=== PATIENT | female | born 1955 | race Two or more races ===

== ENCOUNTER 2024-08-27 21:46 | Emergency (ER) | payer OTHER, SELFPAY ==
--- NOTE | 2024-08-27 21:49 | XR_ITS ---
Examination: CT cervical spine without contrast 2-D sagittal reconstructions 2-D coronal reconstructions 3-D reconstructions. Exam date and time:August 27, 2024 1059 hrs. Indications: Ground-level fall today with injury to the neck, neck pain CTDI:vol (mGy) 12.46 DLP: (mGycm) 321 Technique: Multiple 2 mm axial sections of the cervical spine have been obtained. The coronal and sagittal reconstructions have been obtained. 3-D reconstructions have been obtained. Low dose protocols were performed. One or more of the following dose reduction techniques were used; automated exposure control, adjustment of the mA and/or KV according to patient size, use of iterative reconstruction technique. Findings: Axial sections demonstrate intact base of the skull. C1 exhibit satisfactory relationship to the odontoid. No acute cervical vertebral body fracture seen. Alignment posterior spinous processes satisfactory. Impression: No acute cervical fracture. Biapical parenchymal scarring
--- NOTE | 2024-08-27 21:49 | XR_ITS ---
Examination: CT brain head without contrast. 2-D sagittal coronal reconstructions Date and time of exam:August 27, 2024 1037 hrs. Indications: Ground-level fall today with injury to the head, head pain Comparison none: February 23, 2022 CTDI: vol (mGy):46.1 DLP: (mGycm):925 Technique: Multiple CT axial sections of the brain have been obtained, 5 mm slice thickness. Contrast has not been administered. 2-D sagittal, coronal reconstructions have been obtained Low dose protocols were performed. One or more of the following dose reduction techniques were used; automated exposure control, adjustment of the mA and/or KV according to patient size, use of iterative reconstruction technique. Findings: No significant ventricular enlargement. Intra-axial or extra-axial hemorrhage density is not seen. No mass effect or midline shift Basal cisterns are not remarkable. Fourth ventricle is midline. Cranial vault intact. Posterior left scalp soft tissue hematoma Impression: Negative for acute hemorrhage, mass effect or midline shift
[2024-08-27 21:50] VITALS: BP 152/76; PULSE 102; RESP 18; TEMP 37.6; O2SAT 96
--- NOTE | 2024-08-27 21:50 | EDNOTE_ITS ---
ED General RME/HPI General Chief complaint: Wound/Laceration Stated complaint: FALL Time Seen by Provider: 08/27/24 21:48 Arrival date/time: 08/27/24 21:46 CC: Ground-level fall, headache HPI patient presents the ER via EMS for ground- level fall after admitting to 2 drinks , patient bent over to tie her shoelaces when she stood up she was dizzy took 1 step back and then fell backwards patient denies LOC. EMS report wheezing in the right lung base patient has a low-grade oral temp patient is awake alert oriented x 3 no focal deficits does not take a blood thinner. EMS reports sugar as high . Patient states that she was on Xarelto for A-fib Dr. Escalera took her off it a while ago . Related Data Home Medications ?Medication ?Instructions ?Recorded ?Confirmed pregabalin 200 mg capsule 200 mg PO TID 08/04/21 02/24/22 albuterol 90 mcg/actuation aerosol 90 mcg inhalation QDAY PRN 11/26/21 02/24/22 inhaler Shortness Of Breath Or Wheezing hydrocodone 10 mg-acetaminophen 1 tab PO Q8H PRN pain 11/26/21 02/24/22 325 mg tablet metformin 1,000 mg tablet,extended 1,000 mg PO QDAY 11/26/21 02/24/22 release 24hr (osmotic) insulin glargine 100 unit/mL (3 35 unit subcut BID 12/02/21 02/24/22 mL) subcutaneous pen (Lantus Solostar U-100 Insulin) Previous Rx's ?Medication ?Instructions ?Recorded rivaroxaban 20 mg tablet (Xarelto) 20 mg PO QDAY #30 tabs 09/29/21 Allergies Allergy/AdvReac Type Severity Reaction Status Date / Time No Known Allergies Allergy Verified 12/02/21 08:44 Review of Systems Review of Systems Narrative Review of Systems: GEN: No fever, no chills, no weight loss EYES: No discharge, no visual changes, no pain HEENT: No ear pain, no congestion, no sore throat PULM: No shortness of breath, no cough, no congestion CV: No chest pain, no dyspnea on exertion, no palpitations GI: No nausea, no vomiting, no diarrhea, no pain, no constipation : No frequency, no urgency, no dysuria MUSC/SKEL: No joint pain, no back pain SKIN: No rash PSYCH: No hallucinations, no depression HEME/LYMPH: No easy bleeding or bruising tendencies NEURO: No weakness, no headache Past Medical History Past Medical History CARDIAC: Positive Cardiac Disorders, Atrial Fibrillation, Congestive Heart Failure and Hypertension RESPIRATORY: Positive Asthma and Pneumonia; Negative Chronic Obstructive Pulmonary Disease (COPD), Emphysema or Tuberculosis GENITOURINARY: Negative Renal Disease MUSCULOSKELETAL: Positive Fractures ENDOCRINE: Positive Diabetes Mellitus Type 2 and Hyperthyroidism; Negative Diabetes Mellitus Type 1 HEMATOLOGIC: Positive Blood Disorders and Anemia; Negative Sickle Cell Disease OTHER HISTORY: Positive Hospitalization and Falls; Negative Blood Transfusions or Cancer Social History SMOKING STATUS: Never smoker SECOND HAND EXPOSURE: Yes SUBSTANCE USE: does not use ED Exam Narrative Physical exam: [General: Awake alert appears not in any acute distress, clear speech no slurred words Head left parietal hematoma with matted hair no active bleeding at this time. No other step-offs hematomas abrasions lacerations HEENT: Eyes: Pupils are PERRLA EOMs are intact no otorrhea or rhinorrhea raccoon's eyes or Felder sign mouth pink moist membranes uvula is midline all other subsystems of HEENT are within acceptable limits Neck is supple nontender Chest equal chest rise nontender to palpation Respiratory: Clear to auscultation no wheezes crackles or rubs CV: Rate rhythm is regular no murmurs rubs or clicks Abdomen is soft nontender no masses positive bowel sounds all 4 quadrants Back: No CVA tenderness no spinous process tenderness from cervical spine thoracic and lumbar spine Skin: Intact no petechiae rash induration ulceration or crepitus Extremities: Moving all extremity against resistance cap refill less than 2 seconds neurosensory intact Neuro: Awake alert oriented x3 Glascow coma 15 no focal deficits] Course Quality Measures none Orders Category Date Time Status EKG (ED ONLY) *Do not use* NOW Care 08/28/24 00:52 Completed Fingerstick [Bedside Blood Glucose] NOW Care 08/28/24 01:07 Completed Miscellaneous Nursing Order X1 Care 08/28/24 05:[address] cervical spine wo con Stat Exams 08/27/24 21:[address] head/brain wo con Stat Exams 08/27/24 21:49 Completed EKG (ED Only) Stat Exams 08/28/24 00:52 Draft Alcohol, Blood Medical Stat Lab 08/27/24 22:07 Completed B-Type Natriuretic Peptide Stat Lab 08/27/24 22:07 Completed Beta Hydroxybutyrate Stat Lab 08/27/24 23:47 Completed CBC Stat Lab 08/27/24 22:07 Completed Comprehensive Metabolic Panel Stat Lab 08/27/24 22:07 Completed Drug Screen,Urine Stat Lab 08/27/24 22:03 Completed LDH (Lactate Dehydrogenase) Stat Lab 08/27/24 22:07 Completed Magnesium Stat Lab 08/27/24 22:07 Completed Partial Thromboplastin Time Stat Lab 08/27/24 22:07 Completed Prothrombin Time with INR Stat Lab 08/27/24 22:07 Completed Troponin I Stat Lab 08/27/24 22:07 Completed Urinalysis Stat Lab 08/27/24 22:03 Completed Insulin Regular Med 08/27/24 23:47 Discontinued 10 unit IV X1 ONE Morphine Inj Med 08/28/24 01:18 Discontinued 4 mg IVP X1 ONE Ondansetron Inj [Zofran Inj] Med 08/28/24 01:18 Discontinued 4 mg IV X1 ONE Ondansetron Inj [Zofran Inj] Med 08/28/24 01:22 Discontinued 4 mg IV X1 ONE Sodium Chloride 0.9% 1000 ml [Ns] 1,000 ml Med 08/28/24 01:18 Discontinued IV 999 mls/hr Sodium Chloride 0.9% 1000 ml [Ns] 500 ml Med 08/28/24 04:50 Discontinued IV 999 mls/hr Sodium Chloride 0.9% 500 ml [Ns] 500 ml Med 08/27/24 23:46 Discontinued IV 999 mls/hr Tet,Diphth,Pertuss(Acell)-Tdap [Boostrix Vacc] Med 08/27/24 22:18 Discontinued 0.5 ml IMI .ONCE ONE Vital Signs Vital signs: Vital Signs Temperature 99.7 F 08/27/24 21:50 Pulse Rate 102 H 08/27/24 21:50 Respiratory Rate 18 08/27/24 21:50 Blood Pressure 152/76 H 08/27/24 21:50 Pulse Oximetry (%) 96 08/27/24 21:50 Oxygen Delivery Method Room Air 08/27/24 21:50 [facility] Patient data External records reviewed:: [facility] previous records and EMS form Clinical information provided by:: patient and EMS Social determinants that could affect healthcare access:: none Patient has the following chronic illnesses:: Diabetes How is presenting disease/condition affected by chronic disease/condition?: u neffected by Evaluation data The following diagnostics were reviewed and interpreted by me:: lab results, radiology exam(s) and EKG tracing(s) Lab and/or radiology exams considered but not ordered:: CT head C-spine is negative chest Interpretation Summary: Level fall scalp contusion Medications Medications considered but not ordered:: Shift none medicine Medication administrations:: Medication Administration History Discontinued Medications Diphtheria/Tetanus/Acell Pertussis (Diphth,Pertuss(Acell),Tet Vac 0.5 Ml Vial) 0.5 ml IMi .ONCE ONE Stop: 08/27/24 22:19 Last Admin: 08/27/24 22:31 Dose: 0.5 ml Documented By: DOMENIC Sodium Chloride (Ns) 500 mls @ 999 mls/hr IV .Q31M ONE Stop: 08/28/24 00:16 Last Infusion: 08/28/24 00:59 Dose: Infused Documented By: Admin: 08/28/24 00:01 Dose: 999 mls/hr Documented By: DOMENIC Sodium Chloride (Ns) 1,000 mls @ 999 mls/hr IV .Q1H1M ONE Stop: 08/28/24 02:18 Last Infusion: 08/28/24 03:24 Dose: Infused Documented By: Admin: 08/28/24 01:27 Dose: 999 mls/hr Documented By: CVL Sodium Chloride (Ns) 500 mls @ 999 mls/hr IV .Q31M ONE Stop: 08/28/24 05:20 Last Infusion: 08/28/24 05:29 Dose: Infused Documented By: Admin: 08/28/24 04:55 Dose: 999 mls/hr Documented By: DOMENIC Insulin Human Regular (Insulin Hum Regular 1 Unit/0.01 Ml (Per Unit)) 10 unit IV X1 ONE Stop: 08/27/24 23:48 Last Admin: 08/28/24 00:02 Dose: 10 unit Documented By: DOMENIC Co-signed By: JADON Comments: aware. Morphine Sulfate (Morphine Sulf Inj 10 Mg/Ml Vial) 4 mg IVP X1 ONE Stop: 08/28/24 01:19 Last Admin: 08/28/24 01:29 Dose: 4 mg Documented By: CVL Ondansetron HCl (Ondansetron Inj 2 Mg/Ml Inj 2 Ml) 4 mg IV X1 ONE; Protocol Stop: 08/28/24 01:19 Last Admin: 08/28/24 02:07 Dose: Not Given Documented By: CB Non-Admin Reason: Duplicate Medication on eMAR Ondansetron HCl (Ondansetron Inj 2 Mg/Ml Inj 2 Ml) 4 mg IV X1 ONE; Protocol Stop: 08/28/24 01:23 Last Admin: 08/28/24 01:29 Dose: 4 mg Documented By: CVL None Consultations Consultation(s) initiated? (list below): No Diagnosis Differential Diagnosis ED Complaint MDM: Scalp contusion, fall, closed head injury Most likely diagnosis given after review of the tests above:: Is Using full Admission Indicated Admission indicated?: not indicated Explain why admission is indicated or not indicated:: Stable for outpatient follow-up Admission Request Was there a request for admission?: No Disposition Plan Disposition Plan: Discharge Discharge Attestation Discharge Attestation: The patient and all family members were given an opportunity to ask questions and understood the discharge instructions. Discharge instructions specifically effects, indications for sooner follow up or return to the emergency department, and the expected course of current diagnosis. Patient condition: Stable Medical Decision Making Differential Diagnosis Differential Diagnosis: Scalp contusion, fall, closed head injury Lab Data 08/27/24 22:07 08/27/24 22:07 Labs: Lab Results 08/27/24 08/27/24 08/28/24 Range/Units 22:03 22:07 00:02 WBC 8.1 (3.6-11.0) Thou/mm3 RBC 3.66 L (4.00-5.20) Miln/mm3 Hgb 10.5 L (12.0-16.0) g/dL Hct 30.6 L (36.0-46.0) % MCV 84 (80-100) fL MCH 28.7 (25.0-35.0) pg MCHC 34.3 (31.0-37.0) g/dl RDW Std Deviation 41.4 (36.4-46.3) fL Plt Count 181 (140-440) Thou/mm3 Neut % (Auto) 80 (37-80) % Lymph % (Auto) 11 (10-50) % [place] % (Auto) 8 (0-12) % Eos % (Auto) 1 (0-10) % Baso % (Auto) 0 (0-2.5) % Neut # (Auto) 6.5 (1.8-7.7) Thou/mm3 Lymph # (Auto) 0.9 L (1.0-4.8) Thou/mm3 [place] # (Auto) 0.6 (0.0-0.8) Thou/mm3 Eos # (Auto) 0.1 (0.0-0.5) Thou/mm3 Baso # (Auto) 0.0 (0.0-0.2) Thou/mm3 Immature Gran # (Auto) 0.05 H (0.00-0.00) Thou/mm3 Absolute Nucleated RBC 0.00 (0.00-0.00) Thou/mm3 Immature Gran % 1 H (0-0) % Nucleated RBC % 0 (0) /100 WBC PT 11.2 (9.0-12.2) Seconds INR 1.0 (0.9-1.3) APTT 28.7 (22.0-36.0) Seconds Sodium 132 L (136-145) mMol/L Potassium 3.8 (3.4-5.1) mMol/L Chloride 96 L (98-107) mMol/L Carbon Dioxide 23.4 (20.0-31.0) mMol/L Anion Gap 13 (7-16) BUN 38 H (9-23) mg/dL Creatinine 2.2 H (0.6-1.3) mg/dL Estim Creat Clear Calc 22.2 L (>60) mL/min eGFR 24 L (60 - ) See Note BUN/Creatinine Ratio 17 (12-20) Ratio Glucose 697 H* (74-106) mg/dL Calculated Osmolality 306 H (275-295) Calcium 9.5 (8.3-10.6) mg/dL Corrected Calcium 9.5 (8.5-10.1) mg/dL Magnesium 1.7 (1.6-2.6) mg/dL Total Bilirubin 0.4 (0.3-1.2) mg/dL AST 21 (0-34) U/L ALT 12 (10-49) U/L Alkaline Phosphatase 262 H (46-116) U/L Lactate Dehydrogenase 176 (120-246) U/L Troponin I < 0.020 (0.0-0.045) ng/mL B-Natriuretic Peptide 57 (0-100) pg/mL Total Protein 7.7 (5.7-8.2) gm/dL Albumin 4.4 (3.4-4.8) gm/dL Globulin 3.3 (2.3-3.5) gm/dL Albumin/Globulin Ratio 1.3 (1.2-2.2) Beta-Hydroxybutyrate/Acetoacetate 0.2 (<0.6) mmol/L Ur Collection Type Clean Catch Urine Color Colorless A (Lt Yel-Yel) Urine Clarity Clear (Clear/Hazy) Urine pH 7.0 (5.0-7.0) Ur Specific [place] 1.014 (1.001-1.035) Urine Protein Trace (Neg - Trace) Urine Glucose (UA) 4+ A (Negative) Urine Ketones Negative (Negative) Urine Blood Trace (Negative) Urine Nitrite Negative (Negative) Urine Bilirubin Negative (Negative) Urine Urobilinogen (Auto) Negative (0.0-1.0) mg/dL Ur Leukocyte Esterase Positive (Negative) Urine RBC 1 (0-3) /hpf Urine WBC 27 H (0-5) /hpf Ur Squamous Epith Cells < 1 (0-5) /hpf Urine Bacteria None (None) Urine Opiates Screen Negative (Negative) Urine Fentanyl Screen Negative (Negative) Ur Barbiturates Screen Negative (Negative) U Amphetamin/Meth Scrn Negative (Negative) U Benzodiazepines Scrn Negative (Negative) U Cocaine Metab Screen Negative (Negative) U Marijuana (THC) Screen Negative (Negative) Ethyl Alcohol < 3.0 (0-10.0) mg/dL Discharge Plan Plan Patient Disposition: HOME (Self Care) Prescriptions/Referrals Prescriptions/Med Rec: No Action pregabalin 200 mg capsule 200 mg PO TID Xarelto 20 mg tablet 20 mg PO QDAY Qty: 30 0RF Hold Instructions: Resume on 12/04/21. HOLD MEDICATION FOR 2 DAYS. MAY RESUME ON Wednesday12/04/21. Rx Instructions: must administer with evening meal hydrocodone-acetaminophen 10-325 mg Tablet 1 tab PO Q8H PRN (Reason: pain) albuterol 90 mcg/actuation Aerosol 90 mcg INHALATION QDAY PRN (Reason: Shortness Of Breath Or Wheezing) metformin 1,000 mg Tablet Extended Release 24hr 1,000 mg PO QDAY Lantus Solostar U-100 Insulin 100 unit/mL (3 mL) Insulin Pen 35 unit SUBCUT BID Referrals: Ofelia Alberto MD [Primary Care Provider] - In 1 week Problem List Clinical Impression: Contusion of scalp, Closed head injury Patient/Caregiver Discharge Instructions Education Materials: ED Scalp Contusion, ED Mechanical Fall Additional Instructions: Return to the emergency department for any worsening symptoms, or any other concerns. Print Language: Korean Stand Alone Forms: Brit Award Info., Patient Portal Info Letter PA/PROCESS TREATER Supervising Physician PA/PROCESS TREATER Supervising Physician: Chuy Hernandez ENP
[2024-08-27 21:51] VITALS: PULSE 85; RESP 16; O2SAT 98; BMI 25.3
[2024-08-27 22:16] LABS: Collection Type, Urine Clean Catch
[2024-08-27 22:19] LABS: Basophils % (Auto) 0 % (0-2.5); Eosinophils # (Auto) 0.1 Thou/mm3 (0.0-0.5); Eosinophils % (Auto) 1 % (0-10); Hematocrit 30.6 % (36.0-46.0); Hemoglobin 10.5 g/dL (12.0-16.0); Immature Granulocytes % (Auto) 1 % (0-0); Immature Granulocytes Auto 0.05 Thou/mm3 (0.00-0.00); Lymphocytes # (Auto) 0.9 Thou/mm3 (1.0-4.8); Lymphocytes % (Auto) 11 % (10-50); Mean Corpuscular HGB Conc 34.3 g/dl (31.0-37.0); Mean Corpuscular Hemoglobin 28.7 pg (25.0-35.0); Mean Corpuscular Volume 84 fL (80-100); Monocytes # (Auto) 0.6 Thou/mm3 (0.0-0.8); Monocytes % (Auto) 8 % (0-12); Neutrophils # (Auto) 6.5 Thou/mm3 (1.8-7.7); Neutrophils % (Auto) 80 % (37-80); Nucleated Red Blood Cell % 0 /100 WBC (0); Platelet Count 181 Thou/mm3 (140-440); RDW Standard Deviation 41.4 fL (36.4-46.3); Red Blood Count 3.66 Miln/mm3 (4.00-5.20); White Blood Count 8.1 Thou/mm3 (3.6-11.0)
[2024-08-27 22:29] LABS: Partial Thromboplastin Time 28.7 Seconds (22.0-36.0); Prothrombin Time 11.2 Seconds (9.0-12.2)
[2024-08-27 22:31] LABS: B-Type Natriuretic Peptide 57 pg/mL (0-100)
[2024-08-27] MEDS: DIPHTH,PERTUSS(ACELL),TET VAC 0.5 ML VIAL IMi (22:31)
[2024-08-27 22:33] VITALS: BP 165/75; PULSE 96; RESP 18; O2SAT 95
[2024-08-27 22:37] LABS: Alanine Aminotransferase 12 U/L (10-49); Albumin, Serum 4.4 gm/dL (3.4-4.8); Albumin/Globulin Ratio 1.3 (1.2-2.2); Alcohol, Blood Medical < 3.0 mg/dL (0-10.0); Alkaline Phosphatase 262 U/L (46-116); Anion Gap 13 (7-16); Aspartate Amino Transferase 21 U/L (0-34); BUN/Creatinine Ratio 17 Ratio (12-20); Bilirubin,Total 0.4 mg/dL (0.3-1.2); Blood Urea Nitrogen 38 mg/dL (9-23); Calcium 9.5 mg/dL (8.3-10.6); Calcium (Corrected) 9.5 mg/dL (8.5-10.1); Carbon Dioxide 23.4 mMol/L (20.0-31.0); Chloride 96 mMol/L (98-107); Creatinine (Component) 2.2 mg/dL (0.6-1.3); Estimated Creatinine Clearance 22.2 mL/min (>60); Globulin 3.3 gm/dL (2.3-3.5); Magnesium 1.7 mg/dL (1.6-2.6); Potassium 3.8 mMol/L (3.4-5.1); Sodium 132 mMol/L (136-145); Total Protein 7.7 gm/dL (5.7-8.2); Troponin I < 0.020 ng/mL (0.0-0.045); eGFR 24 See Note
[2024-08-27 22:37] LABS: Bilirubin,Urine Negative (Negative); Blood,Urine Trace (Negative); Clarity,Urine Clear (Clear/Hazy); Color,Urine Colorless (Lt Yel-Yel); Glucose, Urine 4+ (Negative); Ketones,Urine Negative (Negative); Leukocyte Esterase,Urine Positive (Negative); Nitrite,Urine Negative (Negative); Protein,Urine Trace (Neg - Trace); RBC,Urine 1 /hpf (0-3); Specific Gravity,Urine 1.014 (1.001-1.035); Squamous Epithelial Cell,Urine < 1 /hpf (0-5); Urobilinogen,Urine Negative mg/dL (0.0-1.0); WBC,Urine 27 /hpf (0-5)
[2024-08-27 22:38] LABS: Amphetamine/Methamp Scrn,U Negative (Negative); Barbiturate Screen,Urine Negative (Negative); Benzodiazepines Screen,Urine Negative (Negative); Benzoylecgonine Screen, Ur Negative (Negative); Fentanyl Screen,Urine Negative (Negative); Opiate Screen,Urine Negative (Negative); THC Screen,Urine Negative (Negative)
[2024-08-27 22:56] LABS: LDH (Lactate Dehydrogenase) 176 U/L (120-246)
[2024-08-27 23:00] LABS: Osmolality,Calculated 306 (275-295)
[2024-08-27 23:04] LABS: Glucose 697 mg/dL (74-106)
--- NOTE | 2024-08-27 23:41 | PD.EDADDENDU ---
Emergency Room Addendum Addendum Narrative: 2300: Care assumed from Chuy Hernandez NP. Past medical, surgical, social and family history reviewed. Vitals and home medications reviewed. Results and treatment plan discussed. I will assume the care of the patient at this time and will follow the patient, pending CT head and CT cervical spine. Please refer to the emergency department record for history and examination from initial visit. 0115: Patient is c/o RLE pain. Additional pain medications (Morphine) and x-ray ordered. EKG done at 0103, aFib RvR, rate of 141, nonspecific ST-T wave changes in lead I and avL, no elevations, QTc: 376, no STEMI, similar to previous EKG done in 02/2022, according to my interpretation. RADIOLOGY RESULTS: I have personally reviewed the radiology data and agree with the radiologist's interpretation below: [facility] Report Signed Patient: TAJ ZAMAN Record#: [id number] Birthdate: 1955 Age/Sex: 69 / F Location: [facility] Attending Dr: Ordering Physician: Chuy Hernandez NP Date of Service: 08/27/24 Procedure(s): CT cervical spine wo con Accession Number(s): [id number] cc: Chuy Hernandez NP; Jordan Garza MD; Ofelia Alberto MD~ Examination: CT cervical spine without contrast 2-D sagittal reconstructions 2-D coronal reconstructions 3-D reconstructions. Exam date and time:August 27, 2024 1059 hrs. Indications: Ground-level fall today with injury to the neck, neck pain CTDI:vol (mGy) 12.46 DLP: (mGycm) 321 Technique: Multiple 2 mm axial sections of the cervical spine have been obtained. The coronal and sagittal reconstructions have been obtained. 3-D reconstructions have been obtained. Low dose protocols were performed. One or more of the following dose reduction techniques were used; automated exposure control, adjustment of the mA and/or KV according to patient size, use of iterative reconstruction technique. Findings: Axial sections demonstrate intact base of the skull. C1 exhibit satisfactory relationship to the odontoid. No acute cervical vertebral body fracture seen. Alignment posterior spinous processes satisfactory. Impression: No acute cervical fracture. Biapical parenchymal scarring Dictated By: Jordan Garza MD Signed By: <Electronically signed by Jordan Garza MD in [place]> 08/27/24 7850 [facility] Report Signed Patient: TAJ ZAMAN Record#: [id number] Birthdate: 1955 Age/Sex: 69 / F Location: [facility] Attending Dr: Ordering Physician: Chuy Hernandez NP Date of Service: 08/27/24 Procedure(s): CT head/brain wo con Accession Number(s): [id number] cc: Chuy Hernandez NP; Jordan Garza MD; Ofelia Alberto MD~ Examination: CT brain head without contrast. 2-D sagittal coronal reconstructions Date and time of exam:August 27, 2024 1037 hrs. Indications: Ground-level fall today with injury to the head, head pain Comparison none: February 23, 2022 CTDI: vol (mGy):46.1 DLP: (mGycm):925 Technique: Multiple CT axial sections of the brain have been obtained, 5 mm slice thickness. Contrast has not been administered. 2-D sagittal, coronal reconstructions have been obtained Low dose protocols were performed. One or more of the following dose reduction techniques were used; automated exposure control, adjustment of the mA and/or KV according to patient size, use of iterative reconstruction technique. Findings: No significant ventricular enlargement. Intra-axial or extra-axial hemorrhage density is not seen. No mass effect or midline shift Basal cisterns are not remarkable. Fourth ventricle is midline. Cranial vault intact. Posterior left scalp soft tissue hematoma Impression: Negative for acute hemorrhage, mass effect or midline shift Dictated By: Jordan Garza MD Signed By: <Electronically signed by Jordan Garza MD in OV> 08/27/24 8147
[2024-08-28] MEDS: SODIUM CHLORIDE 0.9% 500 ML 500 ML 999 ML IV (00:01)
[2024-08-28] MEDS: INSULIN HUM REGULAR 1 UNIT/0.01 ML (PER UNIT) 10 UNIT IV (00:02)
[2024-08-28 00:03] VITALS: BP 142/61; PULSE 99; RESP 20; TEMP 37.3; O2SAT 95
[2024-08-28 00:15] LABS: Beta Hydroxybutyrate 0.2 mmol/L (<0.6)
--- NOTE | 2024-08-28 00:52 | EKG_ITS ---
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
[2024-08-28] MEDS: SODIUM CHLORIDE 0.9% 1000 ML 1,000 ML 999 ML IV (01:27)
[2024-08-28] MEDS: ONDANSETRON INJ 2 MG/ML INJ 2 ML 4 MG IV (01:29)
[2024-08-28] MEDS: MORPHINE SULF INJ 10 MG/ML VIAL 4 MG IVP (01:29)
[2024-08-28 02:32] VITALS: BP 109/49; PULSE 130; RESP 15; TEMP 37.2; O2SAT 95
[2024-08-28 04:33] VITALS: BP 159/99; PULSE 108; RESP 16; TEMP 37.3; O2SAT 99
[2024-08-28 04:42] VITALS: BP 93/56
[2024-08-28] MEDS: SODIUM CHLORIDE 0.9% 1000 ML 500 ML 999 ML IV (04:55)
[2024-08-28 04:56] VITALS: BP 93/56; PULSE 138; RESP 17; O2SAT 94
[2024-08-28 05:59] VITALS: BP 98/60; PULSE 130; RESP 20; TEMP 37.2; O2SAT 95
== END 2024-08-28 06:01 | disposition home or self-care (01) ==
PROVIDERS: Registered Nurse General Practice; Emergency Provider Emergency Medicine; PCP Family Medicine
DX: S00.03XA Contusion of scalp, initial encounter (principal); S19.9XXA Unspecified injury of neck, initial encounter; J98.4 Other disorders of lung; I48.91 Unspecified atrial fibrillation; I50.9 Heart failure, unspecified; I11.0 Hypertensive heart disease with heart failure; Z79.01 Long term (current) use of anticoagulants; W18.30XA Fall on same level, unspecified, initial encounter; Z23 Encounter for immunization
CPT/HCPCS: 36415; 70450; 72125; 80053; 80307; 80320; 81001; 82010; 83615; 83735; 83880; 84484; 85025; 85610; 85730; 90471; 90715; 93005; 96360; 96361; 99284; J1815; J2270; J2405; J7030; J7040; G0480

== ENCOUNTER → 2024-09-01 | Outpatient (CLI) | payer OTHER, SELFPAY ==
--- NOTE | 2024-09-01 09:56 | XR_ITS ---
Examination: PA lateral chest 2 views TECHNIQUE: Upright PA lateral chest 2 views Exam date and time: September 01, 2024 1031 hours Comparison February 25, 2022 INDICATIONS: Congestion and keep bronchitis 2 weeks FINDINGS: Nodular opacities in the right upper lobe with parenchymal disease Mild opacity left upper lobe Accentuation of bronchovascular markings Normal heart size IMPRESSION: Parenchymal disease both upper lobes consistent with pneumonia, follow-up chest imaging recommended to document clearing
[2024-09-01 11:13] LABS: Basophils % (Auto) 0 % (0-2.5); Eosinophils % (Auto) 0 % (0-10); Hematocrit 32.4 % (36.0-46.0); Hemoglobin 10.8 g/dL (12.0-16.0); Immature Granulocytes % (Auto) 1 % (0-0); Immature Granulocytes Auto 0.05 Thou/mm3 (0.00-0.00); Lymphocytes # (Auto) 1.5 Thou/mm3 (1.0-4.8); Lymphocytes % (Auto) 17 % (10-50); Mean Corpuscular HGB Conc 33.3 g/dl (31.0-37.0); Mean Corpuscular Hemoglobin 28.6 pg (25.0-35.0); Mean Corpuscular Volume 86 fL (80-100); Monocytes # (Auto) 0.4 Thou/mm3 (0.0-0.8); Monocytes % (Auto) 4 % (0-12); Neutrophils # (Auto) 6.9 Thou/mm3 (1.8-7.7); Neutrophils % (Auto) 78 % (37-80); Nucleated Red Blood Cell % 0 /100 WBC (0); Platelet Count 235 Thou/mm3 (140-440); RDW Standard Deviation 42.2 fL (36.4-46.3); Red Blood Count 3.78 Miln/mm3 (4.00-5.20); White Blood Count 8.8 Thou/mm3 (3.6-11.0)
[2024-09-01 11:28] LABS: Creatinine MALB Rnd Ur 46 mg/dL (30-125); Microalbumin Creat Ratio 457 mg/gCrea (<30); Microalbumin, Random Urine 210 mg/L (0-300)
[2024-09-01 11:29] LABS: B-Type Natriuretic Peptide 276 pg/mL (0-100)
[2024-09-01 11:51] LABS: Iron 72 mcg/dL (50-170)
[2024-09-01 11:53] LABS: Alanine Aminotransferase 17 U/L (10-49); Albumin, Serum 4.5 gm/dL (3.4-4.8); Albumin/Globulin Ratio 1.5 (1.2-2.2); Alkaline Phosphatase 155 U/L (46-116); Anion Gap 10 (7-16); Aspartate Amino Transferase 28 U/L (0-34); BUN/Creatinine Ratio 30 Ratio (12-20); Blood Urea Nitrogen 36 mg/dL (9-23); Calcium 9.2 mg/dL (8.3-10.6); Calcium (Corrected) 9.2 mg/dL (8.5-10.1); Carbon Dioxide 24.3 mMol/L (20.0-31.0); Chloride 108 mMol/L (98-107); Creatinine (Component) 1.2 mg/dL (0.6-1.3); Glucose 337 mg/dL (74-106); Osmolality,Calculated 304 (275-295); Potassium 4.6 mMol/L (3.4-5.1); Sodium 142 mMol/L (136-145); Total Protein 7.5 gm/dL (5.7-8.2); eGFR 49 See Note
[2024-09-01 14:26] LABS: Bilirubin,Total 0.5 mg/dL (0.3-1.2); Cardiac Risk Estimate 3.6 RATIO (3.7-5.6); Cholesterol 144 mg/dL (132-200); HDL Cholesterol 40 mg/dL (40-60); LDL Cholesterol,Calculated 79 mg/dL (0-130); Triglycerides 127 mg/dL (30-150)
[2024-09-01 15:28] LABS: Ferritin 79 ng/mL (7.3-270.7)
[2024-09-01 15:47] LABS: Vitamin B12 973 pg/mL (211-911); Vitamin D 25 Hydroxy Total 14.4 ng/mL (7.3-40.2)
[2024-09-01 16:05] LABS: Glucose Estimated Average 263 mg/dL (80-131); Hemoglobin A1C 10.8 % Hgb (4.8-6.0)
== END | disposition home or self-care (01) ==
LOC: CDIM 09:52 → COPL 10:41
PROVIDERS: PCP Family Medicine; Referring Provider Physician Assistant; Visit Provider Physician Assistant
DX: R91.8 Other nonspecific abnormal finding of lung field (principal); N18.4 Chronic kidney disease, stage 4 (severe); I50.9 Heart failure, unspecified; E11.65 Type 2 diabetes mellitus with hyperglycemia; E78.5 Hyperlipidemia, unspecified; D50.9 Iron deficiency anemia, unspecified; E55.9 Vitamin D deficiency, unspecified
CPT/HCPCS: 36415; 71046; 80053; 80061; 82043; 82306; 82570; 82607; 82728; 83036; 83540; 83880; 85025

== ENCOUNTER → 2024-10-02 | Outpatient (CLI) | payer OTHER, SELFPAY ==
--- NOTE | 2024-10-02 11:30 | XR_ITS ---
Examination: Retroperitoneal ultrasound, complete Technique: Multiple high resolution grayscale images of the retroperitoneum obtained, including kidneys and bladder. Exam date and time:October 02, 2024 1130 hours INDICATIONS: Chronic kidney disease stage IV FINDINGS: Right kidney 8.7 x 4.6 x 4.4 cm renal cortex 1.4 cm Left kidney 11.0 x 5.3 x 5.2 cm cortex 1.9 cm Moderate renal parenchymal scar formation No hydronephrosis No bladder mass or bladder calculi Bladder prevoid volume 60 cc unable to void IMPRESSION: Small right kidney Bilateral renal cortical thinning Moderate bilateral renal parenchymal scar formation
== END | disposition home or self-care (01) ==
PROVIDERS: PCP Family Medicine; Referring Provider Physician Assistant; Visit Provider Family Medicine
DX: N28.89 Other specified disorders of kidney and ureter (principal)
CPT/HCPCS: 76770

== ENCOUNTER → 2025-01-05 | Outpatient (CLI) | payer OTHER, SELFPAY ==
--- NOTE | 2025-01-05 12:42 | XR_ITS ---
Examination: Ribs, left, with PA chest, 4 views Technique: Chest PA, RIBS AP, RPO, LPO, Exam date and time: January 05, 2025 1308 hours INDICATIONS: Left rib pain this week Findings: No significant cardiac enlargement No pneumothorax Stable scarring right upper lobe compared with September 01, 2024 Stable scarring left upper lobe compared with September 01, 2024 No pneumothorax Moderate osteopenia Ribs appear intact IMPRESSION: Stable scarring in the upper lobes compared with September 01, 2024 No pneumothorax Ribs appear intact
[2025-01-05 15:12] LABS: Alanine Aminotransferase 27 U/L (10-49); Albumin, Serum 3.8 gm/dL (3.4-4.8); Albumin/Globulin Ratio 1.5 (1.2-2.2); Alkaline Phosphatase 216 U/L (46-116); Anion Gap 7 (7-16); Aspartate Amino Transferase 28 U/L (0-34); BUN/Creatinine Ratio 18 Ratio (12-20); Bilirubin,Total 0.7 mg/dL (0.3-1.2); Blood Urea Nitrogen 22 mg/dL (9-23); Calcium 9.4 mg/dL (8.3-10.6); Calcium (Corrected) 9.6 mg/dL (8.5-10.1); Carbon Dioxide 27.1 mMol/L (20.0-31.0); Chloride 106 mMol/L (98-107); Creatinine (Component) 1.2 mg/dL (0.6-1.3); Globulin 2.6 gm/dL (2.3-3.5); Osmolality,Calculated 299 (275-295); Sodium 140 mMol/L (136-145); Total Protein 6.4 gm/dL (5.7-8.2); eGFR 49 See Note
[2025-01-05 15:17] LABS: Glucose 406 mg/dL (74-106)
== END | disposition home or self-care (01) ==
LOC: CDIM 12:34 → COPL 13:48
PROVIDERS: PCP Physician Assistant; Referring Provider Physician Assistant; Visit Provider Physician Assistant
DX: E11.65 Type 2 diabetes mellitus with hyperglycemia (principal); R07.82 Intercostal pain
CPT/HCPCS: 36415; 71101; 80053

== ENCOUNTER → 2025-01-10 | Outpatient (CLI) | payer OTHER, SELFPAY ==
--- NOTE | 2025-01-10 | XR_ITS ---
Examination: PA lateral chest 2 views TECHNIQUE: Upright PA lateral chest 2 views Exam date and time: January 10, 2025 1213 hours Comparison December 28, 2024 INDICATIONS: Coughing congestion this week. FINDINGS: Mild basilar bronchitis pattern Normal heart size No lobar pneumonia Scarring in the right upper lobe Significant osteopenia IMPRESSION: Mild basilar bronchitis pattern
== END | disposition home or self-care (01) ==
PROVIDERS: PCP Physician Assistant; Referring Provider Physician Assistant; Visit Provider Physician Assistant
DX: J18.9 Pneumonia, unspecified organism (principal)
CPT/HCPCS: 71046

== ENCOUNTER → 2025-02-26 | Outpatient (CLI) | payer OTHER, SELFPAY ==
[2025-02-26 12:30] LABS: Collection Type, Urine Clean Catch
[2025-02-26 13:09] LABS: Basophils % (Auto) 1 % (0-2.5); Eosinophils # (Auto) 0.1 Thou/mm3 (0.0-0.5); Eosinophils % (Auto) 1 % (0-10); Hemoglobin 11.4 g/dL (12.0-16.0); Immature Granulocytes % (Auto) 0 % (0-0); Lymphocytes % (Auto) 22 % (10-50); Mean Corpuscular HGB Conc 33.5 g/dl (31.0-37.0); Mean Corpuscular Hemoglobin 29.1 pg (25.0-35.0); Mean Corpuscular Volume 87 fL (80-100); Monocytes # (Auto) 0.3 Thou/mm3 (0.0-0.8); Monocytes % (Auto) 7 % (0-12); Neutrophils # (Auto) 3.1 Thou/mm3 (1.8-7.7); Neutrophils % (Auto) 69 % (37-80); Nucleated Red Blood Cell % 0 /100 WBC (0); Platelet Count 167 Thou/mm3 (140-440); RDW Standard Deviation 46.9 fL (36.4-46.3); Red Blood Count 3.92 Miln/mm3 (4.00-5.20); White Blood Count 4.5 Thou/mm3 (3.6-11.0)
[2025-02-26 13:11] LABS: Glucose Estimated Average 206 mg/dL (80-131); Hemoglobin A1C 8.8 % Hgb (4.8-6.0)
[2025-02-26 13:19] LABS: Alanine Aminotransferase 15 U/L (10-49); Albumin, Serum 4.1 gm/dL (3.4-4.8); Albumin/Globulin Ratio 1.3 (1.2-2.2); Alkaline Phosphatase 141 U/L (46-116); Anion Gap 8 (7-16); Aspartate Amino Transferase 30 U/L (0-34); BUN/Creatinine Ratio 20 Ratio (12-20); Bilirubin,Total 0.6 mg/dL (0.3-1.2); Blood Urea Nitrogen 18 mg/dL (9-23); Calcium 9.1 mg/dL (8.3-10.6); Calcium (Corrected) 9.1 mg/dL (8.5-10.1); Cardiac Risk Estimate 2.2 RATIO (3.7-5.6); Chloride 111 mMol/L (98-107); Cholesterol 144 mg/dL (132-200); Creatinine (Component) 0.9 mg/dL (0.6-1.3); Globulin 3.1 gm/dL (2.3-3.5); Glucose 125 mg/dL (74-106); HDL Cholesterol 65 mg/dL (40-60); LDL Cholesterol,Calculated 62 mg/dL (0-130); Osmolality,Calculated 293 (275-295); Potassium 4.7 mMol/L (3.4-5.1); Sodium 146 mMol/L (136-145); Thyroid Stimulating Hormone 1.59 uIU/mL (0.55-4.78); Total Protein 7.2 gm/dL (5.7-8.2); Triglycerides 87 mg/dL (30-150); eGFR > 60 See Note
[2025-02-26 13:23] LABS: Bilirubin,Urine Negative (Negative); Blood,Urine Trace (Negative); Color,Urine Yellow (Lt Yel-Yel); Glucose, Urine 4+ (Negative); Ketones,Urine Negative (Negative); Leukocyte Esterase,Urine Positive (Negative); Nitrite,Urine Positive (Negative); Protein,Urine 1+ (Neg - Trace); RBC,Urine 4 /hpf (0-3); Specific Gravity,Urine 1.022 (1.001-1.035); Squamous Epithelial Cell,Urine 7 /hpf (0-5); Urobilinogen,Urine Negative mg/dL (0.0-1.0); WBC,Urine 5 /hpf (0-5)
[2025-02-26 13:25] LABS: Culture Indicated,Urine Yes
[2025-02-26 13:26] LABS: Bacteria,Urine Rare; Clarity,Urine Hazy (Clear/Hazy)
[2025-02-26 13:59] LABS: Creatinine MALB Rnd Ur 96 mg/dL (30-125); Microalbumin Creat Ratio 203 mg/gCrea (<30); Microalbumin, Random Urine 195 mg/L (0-300)
[2025-02-26 15:02] LABS: Ferritin 95 ng/mL (7.3-270.7); Iron 64 mcg/dL (50-170)
[2025-02-26 15:03] LABS: Vitamin B12 714 pg/mL (211-911); Vitamin D 25 Hydroxy Total 39.2 ng/mL (7.3-40.2)
== END | disposition home or self-care (01) ==
PROVIDERS: PCP Family Medicine; Referring Provider Physician Assistant; Visit Provider Physician Assistant
DX: Z00.00 Encounter for general adult medical examination without abnormal findings (principal); E55.9 Vitamin D deficiency, unspecified; E78.5 Hyperlipidemia, unspecified; D50.9 Iron deficiency anemia, unspecified; I12.9 Hypertensive chronic kidney disease with stage 1 through stage 4 chronic kidney disease, or unspecified chronic kidney disease; E11.22 Type 2 diabetes mellitus with diabetic chronic kidney disease; N18.30 Chronic kidney disease, stage 3 unspecified; E11.65 Type 2 diabetes mellitus with hyperglycemia
CPT/HCPCS: 36415; 80053; 80061; 81001; 82043; 82306; 82570; 82607; 82728; 83036; 83540; 84443; 85025; 87077; 87086; 87186

== ENCOUNTER → 2025-04-24 | Outpatient (CLI) | payer OTHER, SELFPAY ==
--- NOTE | 2025-04-24 08:51 | XR_ITS ---
Examination: Abdomen sonogram, complete Date and time of exam: April 24, 2025 0906 hours INDICATIONS: Abdominal distention and swelling beginning one week ago. Technique: Multiple real-time grayscale transabdominal sonographic images of the abdomen have been obtained. Findings: Absent gallbladder Common bile duct enlarged 12 mm no definite stones Aorta not enlarged Liver 14.1 cm irregular contour no focal liver lesions Normal hepatopedal portal venous flow Patent IVC Right kidney 10.1 cm cortex 1.8 cm Left kidney 10.5 cm cortex 1.8 cm 10 mm upper pole cyst Mild bilateral renal parenchymal scar formation Splenomegaly 16.4 cm IMPRESSION: Abnormal enlargement common bile duct, 12 mm, consider MRCP follow-up to exclude common bile duct stones and/or stricture Primary hepatocellular disease versus cirrhosis Significant splenomegaly
--- NOTE | 2025-04-24 09:26 | XR_ITS ---
Examination: PA lateral chest 2 views TECHNIQUE: Upright PA lateral chest 2 views Date and time: April 24, 2025 0941 hours Comparison January 10, 2025 INDICATIONS: Sepsis alert today, heart failure history FINDINGS: No significant cardiac enlargement Moderate vascular congestion. Accentuation bronchovascular markings. No lobar pneumonia Prominent osteopenia IMPRESSION: Bronchitis pattern
[2025-04-24 10:28] LABS: Collection Type, Urine Clean Catch
[2025-04-24 11:17] LABS: Basophils # (Auto) 0.0 Thou/mm3 (0.0-0.2); Basophils % (Auto) 1 % (0-2.5); Eosinophils # (Auto) 0.1 Thou/mm3 (0.0-0.5); Eosinophils % (Auto) 3 % (0-10); Hematocrit 33.4 % (36.0-46.0); Hemoglobin 11.0 g/dL (12.0-16.0); Immature Granulocytes Auto 0.00 Thou/mm3 (0.00-0.00); Lymphocytes # (Auto) 1.0 Thou/mm3 (1.0-4.8); Lymphocytes % (Auto) 25 % (10-50); Mean Corpuscular HGB Conc 32.9 g/dl (31.0-37.0); Mean Corpuscular Hemoglobin 30.0 pg (25.0-35.0); Mean Corpuscular Volume 91 fL (80-100); Monocytes # (Auto) 0.4 Thou/mm3 (0.0-0.8); Monocytes % (Auto) 9 % (0-12); Neutrophils # (Auto) 2.3 Thou/mm3 (1.8-7.7); Neutrophils % (Auto) 62 % (37-80); Nucleated Red Blood Cell # 0.00 Thou/mm3 (0.00-0.00); Nucleated Red Blood Cell % 0 /100 WBC (0); Platelet Count 80 Thou/mm3 (140-440); RDW Standard Deviation 52.7 fL (36.4-46.3); Red Blood Count 3.67 Miln/mm3 (4.00-5.20); White Blood Count 3.8 Thou/mm3 (3.6-11.0)
[2025-04-24 11:23] LABS: B-Type Natriuretic Peptide 130 pg/mL (0-100)
[2025-04-24 11:29] LABS: Alanine Aminotransferase 23 U/L (10-49); Albumin, Serum 3.8 gm/dL (3.4-4.8); Albumin/Globulin Ratio 1.4 (1.2-2.2); Alkaline Phosphatase 190 U/L (46-116); Anion Gap 9 (7-16); Aspartate Amino Transferase 36 U/L (0-34); BUN/Creatinine Ratio 14 Ratio (12-20); Bilirubin,Total 0.6 mg/dL (0.3-1.2); Blood Urea Nitrogen 13 mg/dL (9-23); Calcium 9.0 mg/dL (8.3-10.6); Calcium (Corrected) 9.2 mg/dL (8.5-10.1); Carbon Dioxide 23.7 mMol/L (20.0-31.0); Chloride 116 mMol/L (98-107); Creatinine (Component) 0.9 mg/dL (0.6-1.3); Globulin 2.7 gm/dL (2.3-3.5); Glucose 58 mg/dL (74-106); Osmolality,Calculated 294 (275-295); Potassium 4.3 mMol/L (3.4-5.1); Sodium 149 mMol/L (136-145); Total Protein 6.5 gm/dL (5.7-8.2); eGFR > 60 See Note
[2025-04-24 11:45] LABS: Bilirubin,Urine Negative (Negative); Blood,Urine 1+ (Negative); Clarity,Urine Clear (Clear/Hazy); Color,Urine Lt-Yellow (Lt Yel-Yel); Culture Indicated,Urine Not Indicated; Glucose, Urine 4+ (Negative); Ketones,Urine Negative (Negative); Leukocyte Esterase,Urine Positive (Negative); Nitrite,Urine Negative (Negative); PH,Urine 5.5 (5.0-7.0); Protein,Urine Trace (Neg - Trace); RBC,Urine 6 /hpf (0-3); Specific Gravity,Urine 1.032 (1.001-1.035); Squamous Epithelial Cell,Urine 11 /hpf (0-5); Urobilinogen,Urine Negative mg/dL (0.0-1.0); WBC,Urine 10 /hpf (0-5)
== END | disposition home or self-care (01) ==
LOC: CDIM 08:49 → COPL 09:51
PROVIDERS: PCP Physician Assistant; Referring Provider Physician Assistant; Visit Provider Radiology Diagnostic Radiology
DX: R60.0 Localized edema (principal); K83.8 Other specified diseases of biliary tract; R16.1 Splenomegaly, not elsewhere classified; N39.0 Urinary tract infection, site not specified; I50.9 Heart failure, unspecified; R14.0 Abdominal distension (gaseous)
CPT/HCPCS: 36415; 71046; 76700; 80053; 81001; 83880; 85025

== ENCOUNTER → 2025-05-15 | Outpatient (CLI) | payer OTHER, SELFPAY ==
--- NOTE | 2025-05-15 09:48 | EKG_ITS ---
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
[2025-05-15 10:16] LABS: Glucose,Fasting 90 mg/dL (74-106)
== END | disposition home or self-care (01) ==
LOC: COPL 09:08
PROVIDERS: PCP Physician Assistant; Referring Provider Ophthalmology; Visit Provider Ophthalmology
DX: Z01.818 Encounter for other preprocedural examination (principal); Z01.810 Encounter for preprocedural cardiovascular examination
CPT/HCPCS: 36415; 82947; 93005

== ENCOUNTER → 2025-06-14 | Outpatient (CLI) | payer OTHER, SELFPAY ==
[2025-06-14 12:11] LABS: INR 1.0 (0.9-1.3); Prothrombin Time 11.0 Seconds (9.0-12.2)
[2025-06-14 12:31] LABS: Alanine Aminotransferase 20 U/L (10-49); Albumin, Serum 4.2 gm/dL (3.4-4.8); Alkaline Phosphatase 170 U/L (46-116); Aspartate Amino Transferase 29 U/L (0-34); Bilirubin,Direct 0.2 mg/dL (0.0-0.3); Bilirubin,Total 0.6 mg/dL (0.3-1.2); Total Protein 6.6 gm/dL (5.7-8.2)
[2025-06-14 12:37] LABS: Ferritin 123 ng/mL (7.3-270.7); Iron 60 mcg/dL (50-170); Percent Iron Saturation 17 % (20-55); Total Iron Binding Capacity 341 mcg/dL (250-425); Unsaturated Iron Binding 281 (225-295)
[2025-06-14 13:18] LABS: AFP Non-Pregnant 21.40 ng/mL (<8.10); Hepatitis A Antibody IgM Non Reactive (Non React); Hepatitis B Core Antibody IgM Non Reactive (Non React); Hepatitis B Surface Antigen Non Reactive (Non React); Hepatitis C Antibody Non Reactive (Non React)
[2025-06-21 07:01] LABS: ANA Screen, IFA NEGATIVE (NEGATIVE); Actin Antibody (IgG)* <20 U; Alpha-1-Antitrypsin* 157 mg/dL (83-199); Ceruloplasmin* 27 mg/dL (14-48); Copper* 136 mcg/dL (70-175); Mitochondrial Ab NEGATIVE (NEGATIVE); Sm Antibody* <1.0 NEG AI (<1.0 NEGATIVE)
== END | disposition home or self-care (01) ==
LOC: COPL 10:32
PROVIDERS: PCP Family Medicine; Referring Provider Specialist; Visit Provider Specialist
DX: E78.9 Disorder of lipoprotein metabolism, unspecified (principal); R94.5 Abnormal results of liver function studies
CPT/HCPCS: 36415; 80074; 80076; 82103; 82105; 82390; 82525; 82728; 83540; 83550; 85610; 86015; 86038; 86235; 86255

== ENCOUNTER → 2025-07-03 | Outpatient (CLI) | payer OTHER, SELFPAY ==
--- NOTE | 2025-07-03 14:00 | XR_ITS ---
Examination: Bone densitometry Date and time of exam:July 03, 2025 1326 hours INDICATIONS: Menopause age 47, steroid administration over asthma Technique: Lumbar spine and hip total bone mineralization values of an calculated. Peak reference and age match control results have been displayed. Findings: Lumbar spine total bone mineralization is1.004 gm/cm2. This is 0.4 standard deviations below peak reference. This is 1.7 standard deviations above age-matched controls. Hip total bone mineralization is 0.72 gm/cm2 This is 1.3 standard deviations below peak reference. This is 0.1 standard deviations above age-matched controls Impression: There is normal mineralization based on lumbar spine measurements. There is osteopenia based on hip measurements Lumbar mineralization is decreased 5.3% compared with May 18, 2022 Hip mineralization is decreased 10.6% compared with May 18, 2022
--- NOTE | 2025-07-03 14:20 | XR_ITS ---
Examination: Screening digital mammography, bilateral Computer aided detection 3-D breast Tomosynthesis, bilateral Date and time of exam: July 03, 2025 1405 hours, compared to mammograms dating to May 29, 2009 Indication: Screening Technique: Nonmagnified MLO, CC views of the breasts to been obtained, reconstructed from 3-D Tomosynthesis images. R2 computer aided detection program utilized for evaluation of suspicious masses and/or abnormal calcifications. 3-D Tomosynthesis images obtained. Findings: Scattered areas of fibroglandular density. Benign calcifications. No interval suspicious masses Impression: BI-RADS category II: Benign Findings. Recommend 1 year follow-up mammogram.
== END | disposition home or self-care (01) ==
PROVIDERS: PCP Physician Assistant; Referring Provider Physician Assistant; Visit Provider Physician Assistant
DX: Z12.31 Encounter for screening mammogram for malignant neoplasm of breast (principal); R92.323 Mammographic fibroglandular density, bilateral breasts; M85.89 Other specified disorders of bone density and structure, multiple sites
CPT/HCPCS: 77063; 77067; 77080

== ENCOUNTER 2025-08-02 06:30 | Day surgery (SDC) | payer OTHER, SELFPAY ==
[2025-07-31 14:15] VITALS: BMI 28.0
--- NOTE | 2025-08-01 07:00 | EKG_ITS ---
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
[2025-08-01 12:40] LABS: Basophils # (Auto) 0.0 Thou/mm3 (0.0-0.2); Basophils % (Auto) 1 % (0-2.5); Eosinophils # (Auto) 0.1 Thou/mm3 (0.0-0.5); Eosinophils % (Auto) 2 % (0-10); Hematocrit 37.9 % (36.0-46.0); Hemoglobin 12.5 g/dL (12.0-16.0); Immature Granulocytes Auto 0.01 Thou/mm3 (0.00-0.00); Lymphocytes # (Auto) 1.1 Thou/mm3 (1.0-4.8); Lymphocytes % (Auto) 28 % (10-50); Mean Corpuscular HGB Conc 33.0 g/dl (31.0-37.0); Mean Corpuscular Hemoglobin 29.6 pg (25.0-35.0); Mean Corpuscular Volume 90 fL (80-100); Monocytes # (Auto) 0.4 Thou/mm3 (0.0-0.8); Monocytes % (Auto) 9 % (0-12); Neutrophils # (Auto) 2.4 Thou/mm3 (1.8-7.7); Neutrophils % (Auto) 60 % (37-80); Nucleated Red Blood Cell # 0.00 Thou/mm3 (0.00-0.00); Nucleated Red Blood Cell % 0 /100 WBC (0); RDW Standard Deviation 46.2 fL (36.4-46.3); Red Blood Count 4.22 Miln/mm3 (4.00-5.20); White Blood Count 4.0 Thou/mm3 (3.6-11.0)
[2025-08-01 12:47] LABS: Anion Gap 10 (7-16); BUN/Creatinine Ratio 12 Ratio (12-20); Blood Urea Nitrogen 13 mg/dL (9-23); Calcium 9.4 mg/dL (8.3-10.6); Carbon Dioxide 25.3 mMol/L (20.0-31.0); Chloride 112 mMol/L (98-107); Creatinine (Component) 1.1 mg/dL (0.6-1.3); Estimated Creatinine Clearance 45.8 mL/min (>60); Glucose 164 mg/dL (74-106); Osmolality,Calculated 296 (275-295); Potassium 4.3 mMol/L (3.4-5.1); Sodium 147 mMol/L (136-145); eGFR 54 See Note
[2025-08-01 12:51] LABS: INR 1.0 (0.9-1.3); Partial Thromboplastin Time 29.1 Seconds (22.0-36.0); Prothrombin Time 10.8 Seconds (9.0-12.2)
[2025-08-01 13:05] LABS: Platelet Count 58 Thou/mm3 (140-440)
[2025-08-01 13:06] LABS: Slide Review Platelets confirmed
[2025-08-02] VITALS (13 sets, daily range): BP systolic 114–179; BP diastolic 60–77; PULSE 56–67; RESP 15–20; TEMP 36.4–36.5; O2SAT 94–99
--- NOTE | 2025-08-02 06:46 | PC.NURSE ---
MD made aware of patient's platelets levels, 58. As per MD, procedure will continue as ordered and as scheduled
[2025-08-02] MEDS: DIAZEPAM 5 MG TABLET PO (07:36)
--- NOTE | 2025-08-02 08:19 | ESOP_ITS ---
Cardiac Cath Procedure Procedure Narrative Date of the procedure 08/02/2025 Title of the procedure 1.left heart catheterization 2.left coronary angiogram 3.right coronary angiogram 4.left ventriculogram 5.conscious sedation 6.radiographic interpretation supervision 7.ultrasound guidance for right radial access Indication for the procedure This is a 70-year-old female with past medical history of hypertension diabetes hyperlipidemia Complains of atypical chest pain shortness of breath Cardiolite scan was abnormal Cardiac catheter and cholangiogram recommended Procedure This was done in the cardiac lab under current electrocardiographic monitoring Intermittent blood pressure monitoring right radial access obtained using modified Seldinger technique and ultrasound guidance 6 [place] sheath was placed TIG 4 catheter was used for selective engagement of the left coronary artery TIG 4 catheter was used for selective images right coronary artery TIG 4 catheter used for left ventriculogram Hemodynamics Overall left ventricular systolic function 55% End-diastolic pressure was 18 mmHg There is no gradient across the aortic valve Coronary anatomy 1.left main coronary artery appears normal 2.left anterior descending artery has proximal luminal irregularities, mid segment has a 90% lesion 3.left circumflex has an ostial proximal lesion 90% 4.obtuse marginal has a 30 to 40% lesion proximally 5.right coronary is a dominant vessel, 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
== END 2025-08-02 12:02 | disposition home or self-care (01) ==
PROVIDERS: PCP Family Medicine; Referring Provider Internal Medicine; Visit Provider Internal Medicine
PROC: (CPT 93458; principal; 2025-08-02 07:30)
DX: I25.10 Atherosclerotic heart disease of native coronary artery without angina pectoris (principal); I35.0 Nonrheumatic aortic (valve) stenosis; I48.0 Paroxysmal atrial fibrillation; I10 Essential (primary) hypertension; E11.9 Type 2 diabetes mellitus without complications; E78.5 Hyperlipidemia, unspecified; Z01.810 Encounter for preprocedural cardiovascular examination
CPT/HCPCS: 93458; 36415; 80048; 85025; 85610; 85730; 93005; 99152; A4649; C1769; C1887; C1894; J0168; J0461; J0583; J1643; J2250; J2312; J2371; J3010; J3490; Q9967; A9270; J2305

== ENCOUNTER → 2025-09-03 | Outpatient (CLI) | payer OTHER, SELFPAY ==
[2025-09-03 11:36] LABS: Collection Type, Urine Clean Catch
[2025-09-03 11:57] LABS: Basophils # (Auto) 0.0 Thou/mm3 (0.0-0.2); Basophils % (Auto) 1 % (0-2.5); Eosinophils # (Auto) 0.1 Thou/mm3 (0.0-0.5); Eosinophils % (Auto) 2 % (0-10); Hematocrit 37.9 % (36.0-46.0); Hemoglobin 12.9 g/dL (12.0-16.0); Immature Granulocytes Auto 0.01 Thou/mm3 (0.00-0.00); Lymphocytes # (Auto) 1.2 Thou/mm3 (1.0-4.8); Lymphocytes % (Auto) 26 % (10-50); Mean Corpuscular HGB Conc 34.0 g/dl (31.0-37.0); Mean Corpuscular Hemoglobin 29.9 pg (25.0-35.0); Mean Corpuscular Volume 88 fL (80-100); Monocytes # (Auto) 0.3 Thou/mm3 (0.0-0.8); Monocytes % (Auto) 7 % (0-12); Neutrophils # (Auto) 2.9 Thou/mm3 (1.8-7.7); Neutrophils % (Auto) 64 % (37-80); Nucleated Red Blood Cell # 0.00 Thou/mm3 (0.00-0.00); Nucleated Red Blood Cell % 0 /100 WBC (0); Platelet Count 88 Thou/mm3 (140-440); RDW Standard Deviation 45.7 fL (36.4-46.3); Red Blood Count 4.32 Miln/mm3 (4.00-5.20); White Blood Count 4.5 Thou/mm3 (3.6-11.0)
[2025-09-03 12:04] LABS: Glucose Estimated Average 212 mg/dL (80-131); Hemoglobin A1C 9.0 % Hgb (4.8-6.0)
[2025-09-03 12:10] LABS: Alanine Aminotransferase 22 U/L (10-49); Albumin, Serum 4.6 gm/dL (3.4-4.8); Albumin/Globulin Ratio 1.5 (1.2-2.2); Alkaline Phosphatase 145 U/L (46-116); Anion Gap 12 (7-16); Aspartate Amino Transferase 34 U/L (0-34); BUN/Creatinine Ratio 17 Ratio (12-20); Bilirubin,Total 0.7 mg/dL (0.3-1.2); Blood Urea Nitrogen 20 mg/dL (9-23); Calcium 9.5 mg/dL (8.3-10.6); Calcium (Corrected) 9.5 mg/dL (8.5-10.1); Carbon Dioxide 25.3 mMol/L (20.0-31.0); Cardiac Risk Estimate 2.3 RATIO (3.7-5.6); Chloride 111 mMol/L (98-107); Cholesterol 128 mg/dL (132-200); Creatinine (Component) 1.2 mg/dL (0.6-1.3); Globulin 3.1 gm/dL (2.3-3.5); Glucose 146 mg/dL (74-106); HDL Cholesterol 56 mg/dL (40-60); LDL Cholesterol,Calculated 52 mg/dL (0-130); Osmolality,Calculated 299 (275-295); Potassium 4.3 mMol/L (3.4-5.1); Sodium 148 mMol/L (136-145); Total Protein 7.7 gm/dL (5.7-8.2); Triglycerides 102 mg/dL (30-150); eGFR 49 See Note
[2025-09-03 12:14] LABS: Ferritin 141 ng/mL (7.3-270.7); Iron 78 mcg/dL (50-170)
[2025-09-03 12:29] LABS: Bilirubin,Urine Negative (Negative); Blood,Urine 1+ (Negative); Color,Urine Lt-Yellow (Lt Yel-Yel); Culture Indicated,Urine Contaminated; Glucose, Urine 4+ (Negative); Ketones,Urine Negative (Negative); Leukocyte Esterase,Urine Positive (Negative); Nitrite,Urine Negative (Negative); PH,Urine 6.0 (5.0-7.0); Protein,Urine Trace (Neg - Trace); RBC,Urine 6 /hpf (0-3); Specific Gravity,Urine 1.029 (1.001-1.035); Squamous Epithelial Cell,Urine 15 /hpf (0-5); Urobilinogen,Urine Negative mg/dL (0.0-1.0); WBC,Urine 18 /hpf (0-5)
[2025-09-03 12:30] LABS: Clarity,Urine Hazy (Clear/Hazy)
== END | disposition home or self-care (01) ==
PROVIDERS: PCP Physician Assistant; Referring Provider Physician Assistant; Visit Provider Physician Assistant
DX: E11.65 Type 2 diabetes mellitus with hyperglycemia (principal); I10 Essential (primary) hypertension; D50.9 Iron deficiency anemia, unspecified; R31.9 Hematuria, unspecified
CPT/HCPCS: 36415; 80053; 80061; 81001; 82728; 83036; 83540; 85025